=== PATIENT | female | born 1965 | race Caucasian/White ===

== ENCOUNTER 2018-10-25 10:57 | Emergency (ER) | payer BC ==
[~2018-10-25] VITALS: Ht 157.5 cm; Wt 67.2 kg
[~2018-10-25 10:57] MED LIST: LORA1TAB PO
[2018-10-25 11:01] VITALS: BP 143/82; PULSE 83; RESP 18; Ht 157.5 cm; Wt 67.2 kg
[2018-10-25] MEDS ORDERED: ONDANSETRON (ODT) 4 MG TAB ODT STA (11:38)
[2018-10-25] MEDS ORDERED: ACETAMINOPHEN 325 MG TAB PO ONE (12:00)
[2018-10-25] MEDS ORDERED: KETOROLAC 30 MG INJ IM STA (12:43)
[2018-10-25] MEDS ORDERED: IBUP-1542 PO (12:44)
[2018-10-25] MEDS ORDERED: BUTA1CAP38 PO (12:44)
--- NOTE | 2018-10-25 12:48 | ERD ---
ER Documentation Chief Complaint Chief Complaint head pain x 8 days HPI 52-year-old female presents with headache for the last 8 days. She describes it as being primarily on front of her head and bitemporal area. She describes it as 7 out of 10. She denies any history of trauma. She is taking a triptan and Phenergan for nausea and headache. She said a few episodes of vomiting, nonbilious nonbloody. She denies any recent illnesses, fevers, cough, deficits, visual changes. She was told she may have migraines but has pain despite treatment for migraines. She denies ever having had any radiologic studies. ROS All systems reviewed and are negative except as per history of present illness. Medications Home Meds Active Scripts Gzwsvzfite-Dwayksrbwecmm-Fnpezlwz* (Fioricet*) 50-300-40 Mg Capsule, 1 CAP PO Q4H PRN for HEADACHE, #14 CAP Prov:GEOFF ROBERTS MD 10/25/18 Ibuprofen* (Motrin*) 600 Mg Tab, 600 MG PO Q6, #20 TAB Prov:GEOFF ROBERTS MD 10/25/18 Lorazepam* (Lorazepam*) 1 Mg Tablet, 1 MG PO BID PRN for AGITATION/ANXIETY, #20 TAB Prov:MARLEEN PARK MD 05/23/15 Allergies Allergies: Coded Allergies: No Known Allergy (Unverified , 05/23/15) PMhx/Soc History of Surgery: No Anesthesia Reaction: No Hx Neurological Disorder: No Hx Respiratory Disorders: No Hx Cardiac Disorders: No Hx Psychiatric Problems: No Hx Miscellaneous Medical Probl: No Hx Alcohol Use: No Hx Substance Use: No Hx Tobacco Use: No Smoking Status: Never smoker FmHx Family History: No diabetes, No coronary disease, No other Physical Exam Vitals Vital Signs Date Temp Pulse Resp B/P (MAP) Pulse Ox O2 O2 Flow FiO2 Time Delivery Rate 10/25/18 98.7 83 18 143/82 100 11:01 (102) Physical Exam Const: No acute distress Head: Atraumatic Eyes: Normal Conjunctiva. Eyes Andrea and extra ocular movements intact. ENT: Normal External Ears, Nose and Mouth. Neck: Full range of motion. No meningismus. Resp: Clear to auscultation bilaterally Cardio: Regular rate and rhythm, no murmurs Abd: Soft, non tender, non distended. Normal bowel sounds Skin: No petechiae or rashes Back: No midline or flank tenderness Ext: No cyanosis, or edema Neur: Awake and alert. Normal gait. No cerebellar signs. Cranial nerves II through XII grossly intact. No pronator drift. Psych: Normal Mood and Affect Results 24 hrs Laboratory Tests Test 10/25/18 11:51 Bedside Urine pH (LAB) 7.5 Bedside Urine Protein (LAB) Negative Bedside Urine Glucose (UA) Negative Bedside Urine Ketones (LAB) Negative Bedside Urine Blood Negative Bedside Urine Nitrite (LAB) Negative Bedside Urine Leukocyte Esterase (L Negative Current Medications Medications Dose Sig/Juan Start Time Status Last (Trade) Ordered Route PRN Stop Time Admin Dose Reason Admin 650 mg ONCE ONCE 10/25/18 DC 10/25/18 Acetaminophen PO 12:00 11:46 (Tylenol 10/25/18 12:01 Tab) Ondansetron 8 mg ONCE STAT 10/25/18 DC 10/25/18 HCl (Zofran ODT 11:38 11:46 Odt) 10/25/18 11:39 Ketorolac 30 mg ONCE STAT 10/25/18 DC Tromethamine IM 12:43 (Toradol) 10/25/18 12:44 Procedures/MDM Patient presents with a headache of 8 days duration which is frontal without concerning neurologic findings. Given headache despite conservative treatment CT brain was performed which was read as normal by the radiologist. Patient has no signs to suggest meningitis, neurologic deficit, additional concerning signs or symptoms. She may have tension headache. Urine is negative for abnormal findings. Patient was given Tylenol and Toradol 30 mg IM after review of CT. Patient be treated with Fioricet, ibuprofen, further observation at home and return precautions. The patient was stable with no new complaints during the ER course. Clinically, there is no current evidence to suggest meningitis, sepsis, acute abdomen, pneumonia, stroke, acute coronary syndrome, pulmonary embolism, aortic dissection or any other emergent condition appearing to require further evaluation or hospitalization. Patient counseled regarding my diagnostic impression and care plan. Prior to discharge all questions answered. Pt agrees with treatment plan and understands strict return precautions. Pt is instructed to follow up with primary care provider within 24-48 hours. Precautionary instructions provided including instructions to return to the ER if not improving or for any worsening or changing symptoms or concerns. Departure Diagnosis: Primary Impression: Headache Headache type: unspecified Headache chronicity pattern: unspecified pattern Intractability: not intractable Qualified Codes: R51 - Headache Condition: Stable Patient Instructions: Headache, Unspecified Referrals: NO PRIMARY,CARE PHYSICIAN (PCP) Additional Instructions: CT normal. Examines normal hoy. Cheque otro vez con fall doctor primario en el proximo blandon or regresa para mas o nueva simptomas. GEOFF ROBERTS MD Oct 25, 2018 12:48
== END 2018-10-25 13:06 | disposition home or self-care (01) ==
LOC: FTE 10:57
DX: R51 Headache (principal)
CPT/HCPCS: 70450; 81003; 81025; 96372; 99285; J1885

== ENCOUNTER 2018-11-28 08:18 | Emergency (ER) | payer BC ==
[~2018-11-28] VITALS: Ht 154.9 cm; Wt 70.0 kg
[~2018-11-28 08:18] MED LIST changes: +BUTA1CAP38 PO; +IBUP-1542 PO
[2018-11-28 08:21] VITALS: BP 125/78; PULSE 74; RESP 16; Ht 154.9 cm; Wt 70.0 kg
[2018-11-28] MEDS ORDERED: KETOROLAC 30 MG INJ IM STA (09:42)
[2018-11-28] MEDS ORDERED: TRAM50TA2 PO (09:45)
[2018-11-28] MEDS ORDERED: IBUP800T48 PO (09:45)
--- NOTE | 2018-11-28 09:47 | ERD ---
ER Documentation Chief Complaint Chief Complaint pt bib self with c/o left hand pain x 2 wks, same pain 8 months ago HPI Right-hand dominant 53-year-old female is here with left hand pain particularly at the base of her middle finger. She states she injured her finger about a year ago. She went to her primary care doctor at that time and gave her a cortisone injection which relieved the pain for 3 months but she had the pain come back for 2 weeks. No new injury or trauma. No fever. No numbness or tingling. Take 400 mg of Motrin at home but did not help. Also complaining of cough and congestion for 4 days. No fever. ROS All systems reviewed and are negative except as per history of present illness. Medications Home Meds Active Scripts Prednisone* (Prednisone*) 20 Mg Tab, 60 MG PO DAILY for 4 Days, TAB Prov:KAYCE MAR PA-C 11/28/18 Tramadol HCl (Tramadol HCl) 50 Mg Tablet, 50 MG PO Q4 PRN for PAIN, #20 TAB Prov:KAYCE MAR PA-C 11/28/18 Ibuprofen* (Motrin*) 800 Mg Tab, 800 MG PO Q6, #30 TAB Prov:KAYCE MAR PA-C 11/28/18 Wxcirujlue-Ffrofgjshzbmx-Thxvrorb* (Fioricet*) 50-300-40 Mg Capsule, 1 CAP PO Q4H PRN for HEADACHE, #14 CAP Prov:GEOFF ROBERTS MD 10/25/18 Ibuprofen* (Motrin*) 600 Mg Tab, 600 MG PO Q6, #20 TAB Prov:GEOFF ROBERTS MD 10/25/18 Lorazepam* (Lorazepam*) 1 Mg Tablet, 1 MG PO BID PRN for AGITATION/ANXIETY, #20 TAB Prov:MARLEEN PARK MD 05/23/15 Allergies Allergies: Coded Allergies: No Known Allergy (Unverified , 05/23/15) PMhx/Soc History of Surgery: No Anesthesia Reaction: No Hx Neurological Disorder: No Hx Respiratory Disorders: No Hx Cardiac Disorders: No Hx Psychiatric Problems: No Hx Miscellaneous Medical Probl: No Hx Alcohol Use: No Hx Substance Use: No Hx Tobacco Use: No Smoking Status: Never smoker FmHx Family History: No diabetes Physical Exam Vitals Vital Signs Date Temp Pulse Resp B/P (MAP) Pulse Ox O2 O2 Flow FiO2 Time Delivery Rate 11/28/18 98.3 74 16 125/78 98 08:21 (94) Physical Exam INITIAL VITAL SIGNS: Reviewed by me GENERAL: Awake, alert and oriented x 4, well appearing, nontoxic, speaking in full sentences. No acute distress HEAD: Atraumatic NECK: Supple. No masses. Full range of motion. No meningismus. No midline tenderness. EYES: EOMI. PERRL. THROAT: No tonilar erythema or edema. No exudates. Uvula midline. No kissing tonsils. RESPIRATORY: Clear to auscultation bilaterally. Symmetric chest wall rise. No wheezing or rales. No accessory muscle use. CV: Regular rate and rhythm. No murmurs, rubs, or gallops. Hand -left: Skin: No laceration, or evidence of external trauma Compartments: Soft Sensation: Intact shoulder/pinky/middle finger/thumb web space Bones: Nontender Snuffbox: Nontender Joints: No effusion Wrist: Flex/Ext: Normal Uln/Radial deviation: Normal Pron/Supination Normal Finger: Flex/Ext: Normal Add/abd: Normal Thumb: Flex/Ext: Normal Opposition: Normal Thumbs up: Normal Results 24 hrs Current Medications Medications Dose Sig/Juan Start Time Status Last (Trade) Ordered Route PRN Stop Time Admin Dose Reason Admin Ketorolac 30 mg ONCE STAT 11/28/18 DC Tromethamine IM 09:42 (Toradol) 11/28/18 09:43 Procedures/MDM Patient has hand pain from remote injury. Toradol injection given. Also URI symptoms. Short course of prednisone given. I doubt she has pneumonia. Patient counseled regarding my diagnostic impression and care plan. Prior to discharge all questions answered. Pt agrees with treatment plan and understands strict return precautions. Pt is instructed to follow up with primary care provider within 24-48 hours. Precautionary instructions provided including instructions to return to the ER if not improving or for any worsening or changing symptoms or concerns. Departure Diagnosis: Primary Impression: Pain of hand Additional Impression: URI (upper respiratory infection) Condition: Stable Patient Instructions: Sprain Hand Additional Instructions: Llame al doctor MAANA y prakash carol JORGE LUIS PARA DENTRO DE 1-2 TERAN.Dgale a la secretaria que nosotros le instruimos hacer esta jorge luis.Avise o llame si fall condicin se empeora antes de la jorge luis. Regresa aqui si peor o no mejor. KAYCE MAR PA-C Nov 28, 2018 09:47
[2018-11-28] MEDS ORDERED: PRED20TA PO (09:48)
== END 2018-11-28 09:55 | disposition home or self-care (01) ==
LOC: FTE 08:18
DX: M79.642 Pain in left hand (principal); J06.9 Acute upper respiratory infection, unspecified
CPT/HCPCS: 96372; J1885